=== PATIENT | male | born 1935 | race Two or more races ===

== ENCOUNTER 2024-03-02 02:01 | Emergency (ER) | payer MEDICARE, MEDICAID, SELFPAY ==
[2024-03-02 02:04] VITALS: PULSE 56; RESP 16; O2SAT 98
--- NOTE | 2024-03-02 02:06 | PD.EDAMS ---
Altered Mental Status RME/HPI General Chief Complaint: Altered Mental Status Stated Complaint: HYPOGLYCEMIA Time Seen by Provider: 03/02/24 02:05 Arrival date/time: 03/02/24 02:01 RME / HPI RME / HPI narrative: Dr. Saunders?s Main ED Evaluation: 89yo male with a history of DM, HTN BIBA from home presents to the ED for a chief complaint of altered mental status. Per EMS, patient's initial blood sugar on scene was 27, went up to 37 after receiving 1g oral glucose, and then up to 65 after receiving D10. Patient states he has not been recognizing where he's at for the last 2-3 days. Son states the patient has been sweating and dizzy on and off for the last 2 weeks. Patient takes his 25 units of insulin every night at 2000, as well as another pill for diabetes that he does not know the name of. He states he does not take his blood sugar on a regular basis. Patient denies any nausea, vomiting, abdominal pain, chest pain, cough, fever, chills or any other associated symptoms. No known allergies. Related Data Home Medications ?Medication ?Instructions ?Recorded ?Confirmed gabapentin 300 mg capsule 300 mg PO QDAY 04/22/21 04/22/21 Previous Rx's ?Medication ?Instructions ?Recorded ciprofloxacin HCl 500 mg tablet 500 mg PO BID #14 tabs 06/23/22 (Cipro) Allergies Allergy/AdvReac Type Severity Reaction Status Date / Time No Known Allergies Allergy Unverified 06/23/22 04:45 Review of Systems Review of Systems Systems Reviewed: All systems reviewed, normal except as documented Past Medical History Past Medical History NEUROLOGIC: Positive Neurological Disorders, Cerebrovascular Accident and Peripheral Neuropathy CARDIAC: Positive Cardiac Disorders and Hypertension; Negative Congestive Heart Failure RESPIRATORY: Negative Chronic Obstructive Pulmonary Disease (COPD) GASTROINTESTINAL: Negative Gastrointestinal Disorders GENITOURINARY: Positive Prostate Cancer; Negative Genitourinary Disorders or Renal Disease MUSCULOSKELETAL: Negative Musculoskeletal Disorders ENDOCRINE: Positive Endocrine Disorders and Diabetes Mellitus Type 2; Negative Diabetes Mellitus Type 1 HEMATOLOGIC: Negative Blood Disorders OTHER HISTORY: Positive Hospitalization, Falls, Chemotherapy, Radiation Therapy, Cancer and Prostate Cancer; Negative Autoimmune Disease, Down Syndrome, Developmental Delay, Blood Transfusions, Blood Transfusion Reaction, Anesthesia Reactions, Chicken Pox, Measles or Mumps Family History FAMILY HISTORY: Negative Family Psychiatric Problems, Family Respiratory Disorders, Family Cardiac Disorders, Family Gastrointestinal Problems, Family Cancer or Family Surgery Surgical History SURGICAL: Positive Neurologic Surgery Social History SMOKING STATUS: Never smoker SECOND HAND EXPOSURE: No ED Exam Narrative Physical exam: GENERAL APPEARANCE: moderately confused, but awake, well-developed, well-nourished, no acute distress VITALS: All vitals were reviewed and the pulse ox is 96% on room air, which is normal according to my interpretation. HEENT: Normocephalic, atraumatic; pupils equal, round, reactive to light; EOMI; mucous membranes pink, moist; oropharynx clear NECK: Supple LUNGS: CTABL; no wheezes, no rales, no rhonchi HEART: Regular rate, regular rhythm; normal S1, S2; no murmurs ABDOMEN: non distended; normal BS; soft, no tenderness, no guarding, no rebound; no masses, no organomegaly, no hernia BACK: no CVA tenderness EXTREMITIES: atraumatic; no edema NEUROLOGIC: moderately confused; cranial nerves II-XII grossly intact; no focal sensory or motor deficits PSYCHIATRIC: appropriate mood and affect SKIN: warm, dry, normal color; no rashes Course Quality Measures none Orders Category Date Time Status Platinum Smith STAT Care 03/02/24 03:20 Active Continuous Pulse Oximetry STAT Care 03/02/24 03:20 Completed EKG (ED ONLY) *Do not use* NOW Care 03/02/24 03:20 Completed Insert IV NOW Care 03/02/24 03:20 Active Miscellaneous Nursing Order NOW Care 03/02/24 03:22 Active NPO STAT Care 03/02/24 03:20 Active Strict Intake and Output Routine Care 03/02/24 03:20 Ordered EKG (ED Only) Stat Exams 03/02/24 03:20 Draft CBC Stat Lab 03/02/24 02:50 Completed Comprehensive Metabolic Panel Stat Lab 03/02/24 02:50 Completed Lactate (Lactic Acid) Stat Lab 03/02/24 03:30 Completed Magnesium Stat Lab 03/02/24 02:50 Completed Urinalysis Stat Lab 03/02/24 03:35 Completed POTASSIUM CHL 10 mEq IVPB [Kcl Ivpb] Med 03/02/24 04:28 Active 10 meq in 100 ml IV X1 Potassium Chloride [K-Dur] Med 03/02/24 04:27 Discontinued 40 meq PO X1 ONE Vital Signs Vital signs: Vital Signs Temperature 95 F L 03/02/24 02:15 Pulse Rate 65 03/02/24 02:15 Respiratory Rate 18 03/02/24 02:15 Blood Pressure 143/45 H 03/02/24 02:15 Pulse Oximetry (%) 96 03/02/24 02:15 Oxygen Delivery Method Room Air 03/02/24 02:15 Altered Mental Status MDM Narrative MDM Narrative:: Scribe Attestation: 03/02/24 - Tahira Osman am scribing for and in the presence of Dr. Saunders. 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.) Clinical information provided by:: patient and family (patient's son) Social determinants that could affect healthcare access:: none Patient has the following chronic illnesses:: DM, HTN How is presenting disease/condition affected by chronic disease/condition?: caused by Evaluation data The following diagnostics were reviewed and interpreted by me:: lab results and EKG tracing(s) Lab and/or radiology exams considered but not ordered:: none Interpretation Summary: WBC count is normal, HnH is 9.1/25.6, Potassium is low at 2.7, Creatinine is elevated at 2.8, Glucose is elevated at 221, Lactic Acid is normal, UA shows a pH of 8.0, 2+ protein, and 1+ glucose, according to my interpretation. EKG done at 0337, sinus bradycardia, rate of 57, left axis deviation, RBBB, QRS: 146, QTc: 474, no ectopy, no acute ischemia, according to my interpretation. Medications / Prescriptions Medications or Prescriptions considered but not ordered:: none Medication administrations:: Medication Administration History Potassium Chloride (Kcl Ivpb) 10 meq in 100 mls @ 100 mls/hr IV X1 ONE Stop: 03/02/24 05:27 Last Admin: 03/02/24 04:59 Dose: 100 mls/hr Documented By: KORINA Discontinued Medications Potassium Chloride (Potassium Chloride 20 Meq Tabcr) 40 meq PO X1 ONE Stop: 03/02/24 04:28 Last Admin: 03/02/24 04:56 Dose: 40 meq Documented By: KORINA see above Consultations Consultation(s) initiated? (list below): No Diagnosis Differential diagnosis altered mental status: hypoglycemia, sepsis and other (insulin overdose, hepatic encephalopathy, hypertensive encephalopathy, UTI) Most likely diagnosis given after review of the tests above:: incidentally found hypokalemia, hypoglycemia Admission Indicated Admission indicated?: not indicated Admission Request Was there a request for admission?: No Disposition Plan Disposition Plan: Discharge Discharge Attestation Discharge Attestation: The patient and all family members were given an opportunity to ask questions and understood the discharge instructions. Discharge instructions specifically effects, indications for sooner follow up or return to the emergency department, and the expected course of current diagnosis. Patient condition: Stable Discharge Plan Prescriptions/Referrals Prescriptions/Med Rec: No Action gabapentin 300 mg Capsule 300 mg PO QDAY ciprofloxacin HCl [Cipro] 500 mg tablet 500 mg PO BID Qty: 14 0RF Referrals: Clarita Charles MD [Primary Care Provider] - In 1 week Problem List Clinical Impression: Chronic kidney disease, Hypoglycemia, Hypokalemia Patient/Caregiver Discharge Instructions Print Language: Bengali
[2024-03-02 02:15] VITALS: BP 143/45; PULSE 65; RESP 18; TEMP 35; O2SAT 96
--- NOTE | 2024-03-02 02:16 | PC.NURSE ---
PT BROUGHT INTO ER BY AMBULANCE FROM HOME FOR ALTERED MENTAL STATUS. PT REPORTS WOKE UP FEELING DIZZY AND DRUNK. DENIES ANY FALL OR INJURIES. PT GIVEN ORAL GLUCOSE AND D10 IV IN ROUTE BY EMS. PT AWAKE AND ALERT UPON ARRIVAL. PT PLACED ON MONITOR. PT FINGER STICK 139.
[2024-03-02 03:02] VITALS: BP 131/72; PULSE 58; RESP 15; TEMP 36.3; O2SAT 96
--- NOTE | 2024-03-02 03:20 | EKG_ITS ---
[facility] Test Date: 2024-03-02 Pat Name: DIONTE STAUFFER Department: Room: - Gender: Male Customer Program Manager: : 1935 Requested By: Tyrese Mccabe Order Number: [id number] Reading MD: Tyrese Mccabe Measurements Intervals [place] Rate: 57 P: 34 FL: 210 QRS: -16 QRSD: 146 T: 7 QT: 479 QTc: 470 Interpretive Statements SINUS BRADYCARDIA WITH FIRST DEGREE AV BLOCK RIGHT BUNDLE BRANCH BLOCK [120+ ms QRS DURATION, UPRIGHT V1, 40+ ms S IN I/aVL/V4/V5/V6] No previous ECG available for comparison /[id number]/S0/[id number]
[2024-03-02 03:34] LABS: Lactate (Lactic Acid) 1.2 mMol/L (0.4-2.0)
[2024-03-02 03:35] LABS: Basophils # (Auto) 0.1 Thou/mm3 (0.0-0.2); Basophils % (Auto) 1 % (0-2.5); Eosinophils # (Auto) 0.9 Thou/mm3 (0.0-0.5); Eosinophils % (Auto) 16 % (0-10); Hematocrit 25.6 % (41.0-53.0); Hemoglobin 9.1 g/dL (13.5-16.0); Immature Granulocytes % (Auto) 0 % (0-0); Immature Granulocytes Auto 0.01 Thou/mm3 (0.00-0.00); Lymphocytes # (Auto) 1.4 Thou/mm3 (1.0-4.8); Lymphocytes % (Auto) 23 % (10-50); Mean Corpuscular HGB Conc 35.5 g/dl (31.0-37.0); Mean Corpuscular Hemoglobin 31.5 pg (25.0-35.0); Mean Corpuscular Volume 89 fL (80-100); Monocytes # (Auto) 0.8 Thou/mm3 (0.0-0.8); Monocytes % (Auto) 13 % (0-12); Neutrophils # (Auto) 2.9 Thou/mm3 (1.8-7.7); Neutrophils % (Auto) 48 % (37-80); Nucleated Red Blood Cell % 0 /100 WBC (0); Platelet Count 169 Thou/mm3 (140-440); RDW Standard Deviation 43.1 fL (35.1-43.9); Red Blood Count 2.89 Miln/mm3 (4.50-5.90)
[2024-03-02 04:00] LABS: Alanine Aminotransferase 18 U/L (10-49); Albumin, Serum 4.1 gm/dL (3.4-4.8); Albumin/Globulin Ratio 1.5 (1.2-2.2); Alkaline Phosphatase 28 U/L (46-116); Anion Gap 10 (7-16); Aspartate Amino Transferase 20 U/L (0-34); BUN/Creatinine Ratio 13 Ratio (12-20); Bilirubin,Total 0.4 mg/dL (0.3-1.2); Blood Urea Nitrogen 35 mg/dL (9-23); Calcium 8.9 mg/dL (8.3-10.6); Calcium (Corrected) 8.9 mg/dL (8.5-10.1); Chloride 100 mMol/L (98-107); Creatinine (Component) 2.8 mg/dL (0.6-1.3); Globulin 2.7 gm/dL (2.3-3.5); Glucose 221 mg/dL (74-106); Osmolality,Calculated 292 (275-295); Sodium 139 mMol/L (136-145); Total Protein 6.8 gm/dL (5.7-8.2); eGFR 21 See Note
[2024-03-02 04:01] LABS: Potassium 2.7 mMol/L (3.4-5.1)
[2024-03-02 04:03] LABS: Collection Type, Urine Clean Catch; RBC,Urine 0 /hpf (0-3); Squamous Epithelial Cell,Urine 0 /hpf (0-5)
[2024-03-02 04:23] LABS: Bilirubin,Urine Negative (Negative); Blood,Urine Negative (Negative); Clarity,Urine Clear (Clear/Hazy); Color,Urine Colorless (Lt Yel-Yel); Glucose, Urine 1+ (Negative); Ketones,Urine Negative (Negative); Leukocyte Esterase,Urine Negative (Negative); Nitrite,Urine Negative (Negative); Protein,Urine 2+ (Neg - Trace); Specific Gravity,Urine 1.011 (1.001-1.035); Urobilinogen,Urine Negative mg/dL (0.0-1.0); WBC,Urine 1 /hpf (0-5)
[2024-03-02] MEDS: POTASSIUM CHLORIDE 20 mEq TABCR 40 MEQ PO (04:56)
[2024-03-02] MEDS: POTASSIUM CHL 10 mEq IVPB 10 MEQ/100 ML BAG 100 MEQ IV (04:59)
[2024-03-02 06:08] VITALS: BP 147/71; PULSE 61; RESP 16; TEMP 36.8; O2SAT 97
== END 2024-03-02 06:46 | disposition home or self-care (01) ==
PROVIDERS: Emergency Provider Emergency Medicine; PCP Obstetrics & Gynecology
DX: I12.9 Hypertensive chronic kidney disease with stage 1 through stage 4 chronic kidney disease, or unspecified chronic kidney disease (principal); E11.649 Type 2 diabetes mellitus with hypoglycemia without coma; N18.9 Chronic kidney disease, unspecified; E87.6 Hypokalemia; R00.1 Bradycardia, unspecified; I44.0 Atrioventricular block, first degree; I45.10 Unspecified right bundle-branch block
CPT/HCPCS: 36415; 80053; 81001; 83605; 83735; 85025; 93005; 96365; 99284; J3480; A9270